=== PATIENT | male | born 2000 | race Two or more races ===

== ENCOUNTER 2020-07-14 13:18 | Emergency (ER) | payer OTHER ==
[~2020-07-14] VITALS: Ht 167.6 cm; Wt 99.8 kg
[2020-07-14 13:31] VITALS: BP 106/59
[2020-07-14] MEDS ORDERED: cefTRIAXone SOD 1,000 MG VL IM ONE (16:00)
[2020-07-14] MEDS ORDERED: TETANUS-DIPTH-ACEL PERTUSSIS 0.5ML SYR Tdap IM ONE (16:00)
[2020-07-14] MEDS ORDERED: LIDOCAINE 1% HCL (LOCAL ANESTH.) INJ 20ML MDV IJ ONE (16:00)
[2020-07-14] MEDS ORDERED: IBUPROFEN 800 MG TAB PO ONE (16:00)
== END 2020-07-14 16:38 | disposition home or self-care (01) ==
LOC: ER 13:18
DX: S62.632A Displaced fracture of distal phalanx of right middle finger, initial encounter for closed fracture (principal); S61.312A Laceration without foreign body of right middle finger with damage to nail, initial encounter; X58.XXXA Exposure to other specified factors, initial encounter; Y93.89 Activity, other specified; Y92.89 Other specified places as the place of occurrence of the external cause; Y99.8 Other external cause status
CPT/HCPCS: 12002; 29130; 73130; 90471; 90715; 96372; 99284; J0696; J2001

== ENCOUNTER 2020-12-15 17:27 | Emergency (ER) | payer OTHER ==
[~2020-12-15] VITALS: Ht 177.8 cm; Wt 68.0 kg
[2020-12-15 17:30] VITALS: BP 142/88
[2020-12-15] MEDS ORDERED: LIDOCAINE 1% HCL (LOCAL ANESTH.) INJ 20ML MDV ID ONE (19:15)
[2020-12-15] MEDS ORDERED: NEOMYCIN-BACITRACIN-POLYM UNITDOSE PKG TOP OINT TOP ONE (19:15)
[2020-12-15] MEDS ORDERED: cefTRIAXone SOD 1,000 MG VL IM ONE (19:15)
== END 2020-12-15 19:44 | disposition home or self-care (01) ==
LOC: ER 17:27
DX: S01.81XA Laceration without foreign body of other part of head, initial encounter (principal); X58.XXXA Exposure to other specified factors, initial encounter; Y93.89 Activity, other specified; Y92.89 Other specified places as the place of occurrence of the external cause; Y99.8 Other external cause status
CPT/HCPCS: 12011; 96372; 99283; J0696; J2001